=== PATIENT | female | born 1945 ===

== ENCOUNTER 2017-10-19 07:20 | Day surgery (SDC) | payer MEDICARE, MEDICAID ==
[2017-10-19] MEDS ORDERED: Lactated Ringer's 1,000 ML IV ONE (08:05)
[2017-10-19] MEDS ORDERED: Midazolam 2 MG/2 ML VIAL ONE (08:09)
[2017-10-19] MEDS ORDERED: Propofol 10 mg/ml Inj (20 ML) ONE (08:09)
[2017-10-19] MEDS ORDERED: Lidocaine 2% MPF (5 ml) Inj ONE (08:09)
[2017-10-19] MEDS ORDERED: Benzocaine/Butamben/Tetracai 14-2-2% TOP Spray TOP ONE (08:19)
[2017-10-19 08:46] VITALS: TEMP 98.5
[2017-10-19 08:59] VITALS: BP 123/47; PULSE 93; RESP 20; O2SAT 99
== END 2017-10-19 09:30 | disposition home or self-care (01) ==
LOC: H.ENDO 07:20
PROVIDERS: ATTEND Internal Medicine Gastroenterology
DX: Z12.11 Encounter for screening for malignant neoplasm of colon (principal); K57.30 Diverticulosis of large intestine without perforation or abscess without bleeding; K31.9 Disease of stomach and duodenum, unspecified; K29.70 Gastritis, unspecified, without bleeding; K25.4 Chronic or unspecified gastric ulcer with hemorrhage; K21.9 Gastro-esophageal reflux disease without esophagitis; K30 Functional dyspepsia; K31.7 Polyp of stomach and duodenum; Z87.19 Personal history of other diseases of the digestive system; Z87.11 Personal history of peptic ulcer disease; K29.50 Unspecified chronic gastritis without bleeding
CPT/HCPCS: 43239; 45378; 88305; 88342; J2250; J2704; J7120